=== PATIENT | female | born 1960 | race Caucasian/White ===

== ENCOUNTER 2017-11-20 12:43 | Emergency (ER) | payer BC ==
[2017-11-20 16:22] LABS: ABS Basophils 0.1 10^3/ul (0-0.2); ABS Eosinophils 0.1 10^3/ul (0-0.6); ABS Lymphocytes 2.5 10^3/ul (1.0-4.8); ABS Monocytes 0.6 10^3/ul (0-0.8); ABS Neutrophils 4.6 10^3/ul (1.5-7.7); ABS Nucleated RBC 0 10^3/ul; Eosinophil % 1.4 % (0-6); Hematocrit 43 % (35-47); Hemoglobin 14.3 g/dl (12.0-16.0); Lymphocyte % 31.6 % (25-47); Mean Corpuscular HGB Conc 34 g/dl (31-36); Mean Corpuscular Hemoglobin 30 pg (27-31); Mean Corpuscular Volume 90 fL (80-97); Mean Platelet Volume 7.7 um3 (7.4-10.4); Nucleated Red Blood Cells % 0.1; Platelet Count 260 10^3/ul (150-450); Red Blood Count 4.78 10^6/ul (4.00-5.40); Red Cell Distribution Width 14 % (10.5-15); White Blood Count 7.8 10^3/ul (3.5-10.8)
[2017-11-20 16:53] LABS: EGFR Non-African American 92.3 (>60)
--- NOTE | 2017-11-20 16:58 | RAD ---
INDICATION: Abdominal pain, no bowel movement. 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 TECHNIQUE: Frontal supine films of the abdomen were obtained. FINDINGS: The small bowel and colon appear nondistended. There is a moderate to large amount retained stool present throughout the colon. There is a calcific density which projects over the pelvis on the right side which is unchanged from the prior exam and therefore most consistent with a phlebolith. IMPRESSION: MODERATE TO LARGE AMOUNT RETAINED STOOL.
[2017-11-20] MEDS ORDERED: Magnesium CITRATE* 300 ML BTL PO ONE (17:04)
[2017-11-20] MEDS ORDERED: Polyethylene Glycol 3350* 17 GM PACKET PO PRN (17:04)
[2017-11-20] MEDS ORDERED: Sodium Phosphate ADULT ENEMA* 118 ml bottle PR ONE (17:04)
--- NOTE | 2017-11-20 17:12 | ED ---
Abdominal Pain/Female - HPI Summary HPI Summary: This is jose Kent documenting for Felipe Rene MD. This patient is a 57 y/o female presenting with an abdominal pain. She describes it as a constant, aching pain she has had for a few years that waxes and wanes and radiates to her back. The pain increased today when she got to work. She felt as if her back was going to break and she felt air coming up. She now describes the pain as a 6/10 that is aggravated by nothing and alleviated by nothing. She denies fever, chills, nausea, and vomiting. She went 16 days without BM until she saw an associate of Dr. Rojas who gave her Linzess. She then had BM yesterday after taking Linzess, but it was all water. She now describes it as still trying to come out. She has had 2 C-sections in the past and a colonoscopy 2 years ago that was normal. Her LNMP was 10 years ago. - History of Current Complaint Chief Complaint: EDAbdPain Stated Complaint: ABD PAIN Time Seen by Provider: 11/20/17 16:28 Hx Obtained From: Patient Hx Last Menstrual Period: 10 years ago Onset/Duration: Sudden Onset, Still Present Timing: Constant - with waxing and waning Severity Initially: Moderate Severity Currently: Moderate Pain Intensity: 6 Pain Scale Used: 0-10 Numeric Radiates: Yes Radiates to: Back Character: Other: - Ache Aggravating Factor(s): Nothing Alleviating Factor(s): Nothing Associated Signs and Symptoms: Positive: Back Pain - Had watery stool yesterday after 16 days of no BM. She denies fever, chills, nausea, and vomiting. Allergies/Adverse Reactions: Allergies Allergy/AdvReac Type Severity Reaction Status Date / Time No Known Allergies Allergy Verified 11/20/17 13:04 Home Medications: Home Medications Levothyroxine TAB* [Synthroid 88 MCG TAB*] 88 mcg PO DAILY 11/20/17 [History Confirmed 11/20/17] Sertraline* [Zoloft*] 100 mg PO DAILY 11/20/17 [History Confirmed 11/20/17] clonazePAM TAB(*) [Klonopin TAB(*)] 1 - 2 mg PO DAILY PRN 11/20/17 [History Confirmed 11/20/17] PMH/Surg Hx/FS Hx/Imm Hx Endocrine/Hematology History: Denies: Hx Diabetes Cardiovascular History: Denies: Hx Congestive Heart Failure, Hx Hypertension, Hx Pacemaker/ICD GI History: Denies: Other GI Disorders History: Reports: Other Problems/Disorders - ENLARGED UTERUS, MULT FIBROIDS Denies: Hx Renal Disease Sensory History: Denies: Hx Hearing Aid Psychiatric History: Denies: Hx Eating Disorder, Hx Panic Disorder, Hx of Violent Episodes Against Others - Cancer History Hx Chemotherapy: No Hx Radiation Therapy: No - Surgical History Surgery Procedure, Year, and Place: 2 C SECTIONS . LAPROSCOPIC CYST REMOVAL OVARIES 11/27/15 - Immunization History Date of Tetanus Vaccine: Unk Date of Influenza Vaccine: Unk Infectious Disease History: No Infectious Disease History: Denies: Traveled Outside the [place] in Last 30 Days - Family History Known Family History: Positive: Cardiac Disease - mother (45 y/o) and father (68 ) both of [place], Diabetes, Other - MEN1 and rheumatoid arthritis - Social History Alcohol Use: Occasionally Substance Use Type: Reports: None Hx Tobacco Use: No Smoking Status (MU): Never Smoked Tobacco Review of Systems Negative: Fever, Chills Positive: Abdominal Pain, Other - Hasn't had BM in 16 days, but took Linzess, after which she had watery stool yesterday. Negative: Vomiting, Nausea Positive: Other - back pain All Other Systems Reviewed And Are Negative: Yes Physical Exam - Summary Physical Exam Summary: VITAL SIGNS: Reviewed. GENERAL: Patient is a well-developed and nourished FEMALE who is lying comfortable in the stretcher. Patient is not in any acute respiratory distress. HEAD AND FACE: No signs of trauma. No ecchymosis, hematomas or skull depressions. No sinus tenderness. EYES: PERRLA, EOMI x 2, No injected conjunctiva, no nystagmus. EARS: Hearing grossly intact. Ear canals and tympanic membranes are within normal limits. MOUTH: Oropharynx within normal limits. NECK: Supple, trachea is midline, no adenopathy, no JVD, no carotid bruit, no c- spine tenderness, neck with full ROM. CHEST: Symmetric, no tenderness at palpation LUNGS: Clear to auscultation bilaterally. No wheezing or crackles. CVS: Regular rate and rhythm, S1 and S2 present, no murmurs or gallops appreciated. ABDOMEN: Soft, non-tender. No signs of distention. No rebound no guarding, and no masses palpated. Bowel sounds are normal. EXTREMITIES: FROM in all major joints, no edema, no cyanosis or clubbing. NEURO: Alert and oriented x 3. No acute neurological deficits. Speech is normal and follows commands. SKIN: Dry and warm Triage Information Reviewed: Yes Vital Signs On Initial Exam: Initial Vitals Temp Pulse Resp BP Pulse Ox 99.1 F 88 18 167/98 99 11/20/17 13:00 11/20/17 13:00 11/20/17 13:00 11/20/17 13:00 11/20/17 13:00 Vital Signs Reviewed: Yes Diagnostics - Vital Signs Vital Signs Temp Pulse Resp BP Pulse Ox 11/20/17 16:41 97.8 F 16 11/20/17 16:38 97 99 11/20/17 16:37 97 168/101 98 11/20/17 16:04 98.2 F 80 18 155/95 100 11/20/17 14:07 98.3 F 87 16 149/96 99 11/20/17 13:00 99.1 F 88 18 167/98 99 - Laboratory Lab Results: Lab Results 11/20/17 11/20/17 Range/Units 15:59 15:59 WBC 7.8 (3.5-10.8) 10^3/ul RBC 4.78 (4.00-5.40) 10^6/ul Hgb 14.3 (12.0-16.0) g/dl Hct 43 (35-47) % MCV 90 (80-97) fL MCH 30 (27-31) pg MCHC 34 (31-36) g/dl RDW 14 (10.5-15) % Plt Count 260 (150-450) 10^3/ul MPV 7.7 (7.4-10.4) um3 Neut % (Auto) 59.0 (38-83) % Lymph % (Auto) 31.6 (25-47) % [place] % (Auto) 7.2 H (0-7) % Eos % (Auto) 1.4 (0-6) % Baso % (Auto) 0.8 (0-2) % Absolute Neuts (auto) 4.6 (1.5-7.7) 10^3/ul Absolute Lymphs (auto) 2.5 (1.0-4.8) 10^3/ul Absolute Monos (auto) 0.6 (0-0.8) 10^3/ul Absolute Eos (auto) 0.1 (0-0.6) 10^3/ul Absolute Basos (auto) 0.1 (0-0.2) 10^3/ul Absolute Nucleated RBC 0 10^3/ul Nucleated RBC % 0.1 Sodium 140 (135-145) mmol/L Potassium 3.7 (3.5-5.0) mmol/L Chloride 105 (101-111) mmol/L Carbon Dioxide 26 (22-32) mmol/L Anion Gap 9 (2-11) mmol/L BUN 6 (6-24) mg/dL Creatinine 0.66 (0.51-0.95) mg/dL Est GFR ( Amer) 111.7 (>60) Est GFR (Non-Af Amer) 92.3 (>60) BUN/Creatinine Ratio 9.1 (8-20) Glucose 83 (70-100) mg/dL Calcium 9.6 (8.6-10.3) mg/dL Total Bilirubin 0.40 (0.2-1.0) mg/dL AST 17 (13-39) U/L ALT 24 (7-52) U/L Alkaline Phosphatase 80 (34-104) U/L C-Reactive Protein 2.92 (<8.01) mg/L Total Protein 7.6 (6.4-8.9) g/dL Albumin 4.3 (3.2-5.2) g/dL Globulin 3.3 (2-4) g/dL Albumin/Globulin Ratio 1.3 (1-3) Lipase 14 (11.0-82.0) U/L Result Diagrams: 11/20/17 15:59 11/20/17 15:59 Lab Statement: Any lab studies that have been ordered have been reviewed, and results considered in the medical decision making process. - Radiology Abdomen X-Ray Radiology Interpretation Completed By: Radiologist - MODERATE TO LARGE AMOUNT RETAINED STOOL. ED Physician has reviewed this radiology report. Abdominal Pain Fem Course/Dx - Course Course Of Treatment: Patient is a 57-year-old female who presents to the emergency department with a chief complaining of diffuse abdominal pain. The patient reports that shes been having the pain for approximately 1-2 years. Patient has seen GI doctor and also has had a colonoscopy with no significant abnormal findings. She reports that she went to see the GI doctor yesterday for which the given some medications and she had some watery bowel movement. She also reports that she has not had a bowel movement for approximately 16 days. His results without any significant abnormality. X-ray of the abdomen shows copious amount of retain stool. In the ED course the patient was given MiraLAX, lactulose, magnesium citrate and Fleet enema. At this point the patient will be discharged home with follow-up with PCP. Patient is hemodynamically stable alert oriented 3. At this time I dont believe that the patient will benefit of another abdominopelvic CT. I discussed all the findings and test results with the patient and he to follow with PCP and GI. The patient understands and agrees. - Diagnoses Differential Diagnosis: Positive: Constipation Provider Diagnoses: Constipation Discharge - Sign-Out/Discharge Documenting (check all that apply): Patient Departure - Discharge Plan Condition: Stable Disposition: HOME Prescriptions: Magnesium CITRATE* [Citrate of Magnesia*] 150 ml PO ONCE #1 btl Polyethylene Glycol 3350* [Miralax*] 17 gm PO DAILY #12 packet Sodium Phosphate ADULT ENEMA* [Fleet Enema*] 1 enema CO BEDTIME PRN #2 btl PRN Reason: Constipation Patient Education Materials: Constipation (ED) Referrals: Migdalia Otero NP [Primary Care Provider] - 3 Days Additional Instructions: Return to the ED for any new or worsening symptoms.
[2017-11-20 17:37] VITALS: BP 149/95
== END 2017-11-20 17:39 | disposition home or self-care (01) ==
LOC: ED 12:43
DX: K59.00 Constipation, unspecified (principal)
CPT/HCPCS: 36415; 74018; 80053; 83690; 85025; 86140; 99283; A9270-GY

== ENCOUNTER 2017-11-21 12:03 | Emergency (ER) | payer BC ==
[2017-11-21] MEDS ORDERED: Polyethylene Glycol 3350* 17 GM PACKET PO ONE (18:25)
--- NOTE | 2017-11-21 18:30 | ED ---
GI/ HPI - HPI Summary HPI Summary: This is jose Donnelly documenting for attending Taqueria Wilkerson MD. This patient is a 57 year old F presenting to ED with a chief complaint of lack of BM since 2 weeks ago. She took Linzess and all that came out was water. This issue has been occurring for the past couple of years, but every time she empties the stool, it fills back up again. Prior treatment includes Miralax, Cheng, and Linzess. She reports she doesnt drink much water, hasnt tried prune juice, but eats lots of vegetables. The patient rates the pain 6/10 in severity. Symptoms aggravated by nothing. Symptoms alleviated by nothing. Patient reports abdominal pain, nausea, and dry heaves secondary to the pressure in her abdomen. She also reports her back feels like its going to break. - History of Current Complaint Chief Complaint: EDGeneral Time Seen by Provider: 11/21/17 16:24 Stated Complaint: CONSTIPATION Hx Obtained From: Patient Hx Last Menstrual Period: 10 years ago Onset/Duration: Started Weeks Ago - 2 weeks ago it worsened but she has been having issues for the past 2 years, Still Present Timing: Constant, Lasting Weeks - 2 weeks ago it worsened but she has been having issues for the past 2 years Severity: Moderate - 6/10 Current Severity: Moderate - 6/10 Pain Intensity: 6 Location of Pain: Other - back pain, abdominal pain Pain Characteristics: Pressure - in the abdomen, Other: - feels like her back is going to break Associated Signs and Symptoms: Positive: Nausea - and dry heaves - Allergy/Home Medications Allergies/Adverse Reactions: Allergies Allergy/AdvReac Type Severity Reaction Status Date / Time No Known Allergies Allergy Verified 11/20/17 13:04 PMH/Surg Hx/FS Hx/Imm Hx Endocrine/Hematology History: Denies: Hx Diabetes Cardiovascular History: Denies: Hx Congestive Heart Failure, Hx Hypertension, Hx Pacemaker/ICD GI History: Denies: Other GI Disorders History: Reports: Other Problems/Disorders - ENLARGED UTERUS, MULT FIBROIDS Denies: Hx Renal Disease Sensory History: Denies: Hx Hearing Aid Psychiatric History: Denies: Hx Eating Disorder, Hx Panic Disorder, Hx of Violent Episodes Against Others - Cancer History Hx Chemotherapy: No Hx Radiation Therapy: No - Surgical History Surgery Procedure, Year, and Place: 2 C SECTIONS . LAPROSCOPIC CYST REMOVAL OVARIES 11/27/15 - Immunization History Date of Tetanus Vaccine: Unk Date of Influenza Vaccine: Unk Infectious Disease History: No Infectious Disease History: Denies: Traveled Outside the [place] in Last 30 Days - Family History Known Family History: Positive: Cardiac Disease - mother (45 y/o) and father (68 ) both of [place], Diabetes, Other - MEN1 and rheumatoid arthritis - Social History Alcohol Use: Occasionally Substance Use Type: Reports: None Hx Tobacco Use: No Smoking Status (MU): Never Smoked Tobacco Review of Systems Negative: Fever, Chills Negative: Erythema Negative: Sore Throat Negative: Chest Pain Negative: Shortness Of Breath, Cough Negative: Abdominal Pain, Vomiting, Nausea Negative: dysuria, hematuria Negative: Myalgia, Edema Negative: Rash Neurological: Other - negative for dizziness All Other Systems Reviewed And Are Negative: Yes Physical Exam - Summary Physical Exam Summary: Constitutional: Well-developed, Well-nourished, Alert. (-) Distressed Skin: Warm, Dry HENT: Normocephalic; Atraumatic Eyes: Conjunctiva normal Neck: Musculoskeletal ROM normal neck. (-) JVD, (-) Stridor, (-) Tracheal deviation Cardio: Rhythm regular, rate normal, Heart sounds normal; Intact distal pulses; The pedal pulses are 2+ and symmetric. Radial pulses are 2+ and symmetric. (-) Murmur Pulmonary/Chest wall: Effort normal. (-) Respiratory distress, (-) Wheezes, (-) Rales Abd: Soft, (-), epigastric tenderness, (-) Distension, (-) Guarding, (-) Rebound Musculoskeletal: (-) Edema Lymph: (-) Cervical adenopathy Neuro: Alert, Oriented x3 Psych: Mood and affect Normal Triage Information Reviewed: Yes Vital Signs On Initial Exam: Initial Vitals Temp Pulse Resp BP Pulse Ox 97.5 F 79 16 164/101 98 11/21/17 12:08 11/21/17 12:08 11/21/17 12:08 11/21/17 12:08 11/21/17 12:08 Vital Signs Reviewed: Yes Diagnostics - Vital Signs Vital Signs Temp Pulse Resp BP Pulse Ox 11/21/17 15:21 98.4 F 77 16 131/79 98 11/21/17 12:08 97.5 F 79 16 164/101 98 - Laboratory Lab Statement: Any lab studies that have been ordered have been reviewed, and results considered in the medical decision making process. Re-Evaluation - Re-Evaluation First Eval Re-Evaluation Time: 18:35 Comment: Discussed with the patient the recommendations from Dr. Driscoll and plan for discharge. The patient understands and agrees. GIGU Course/Dx - Course Assessment/Plan: Chronic constipation in setting of medication incompliance. Benzodiazepine use. Poor oral intake of water. - Diagnoses Differential Diagnoses - Female: Constipation Provider Diagnoses: Constipation - Physician Notifications Discussed Care Of Patient With: oTny Driscoll Time Discussed With Above Provider: 18:18 Instructed by Provider To: Other - Consulted Dr. Driscoll who recommends the patient increases her water intake, decrease her klonopin, and takes 3 doses of Miralax , and takes Linzess everyday. Discharge - Sign-Out/Discharge Documenting (check all that apply): Patient Departure - Discharge Plan Condition: Stable Disposition: HOME Prescriptions: Polyethylene Glycol 3350* [Miralax*] 51 gm PO DAILY #60 packet Patient Education Materials: Constipation (ED) Referrals: Tony Driscoll MD [Medical Doctor] - (Please follow up with Dr. Driscoll tomorrow morning.) Additional Instructions: Increase your water intake, decrease klonopin, take 3 doses of Miralax, and take Linzess everyday. Please follow up with Dr. Driscoll tomorrow morning. RETURN TO THE EMERGENCY DEPARTMENT FOR CHANGING OR WORSENING SYMPTOMS.
[2017-11-21 19:14] VITALS: BP 128/79
== END 2017-11-21 18:50 | disposition home or self-care (01) ==
LOC: ED 12:03
DX: K59.00 Constipation, unspecified (principal); R11.0 Nausea; Z82.49 Family history of ischemic heart disease and other diseases of the circulatory system; Z83.3 Family history of diabetes mellitus; Z82.61 Family history of arthritis
CPT/HCPCS: 99283; A9270-GY

== ENCOUNTER 2018-01-17 16:34 | Emergency (ER) | payer BC ==
[2018-01-17 17:06] VITALS: BP 138/97
--- NOTE | 2018-01-17 17:12 | UC ---
Abdominal Pain Female HPI - HPI Summary HPI Summary: 57 yo female presents with a history of constipation and GI issues. She tells me that over the last 3 years she has been having issues with constipation for days at a time and then will needs to take a laxative that will cause her to have a large painful BM. She has seen GI for this in the past and has had a colonoscopy, EGD, and CT scan which were all normal - per pt. She has been taking amitiza for her symptoms from GI with no change in her symptoms. She is here today because over the last 9 days she has not had a bowel movement. She has taken colace, miralax, mag citrate, and done a fleet enema with no results. She complains that her upper abdomen is painful, cramping, and distended. She feels nauseous, but has not been vomiting. Denies fever, chills, SOB, chest pain , vomiting, dysuria. She has had 2 c sections and ovarian cyst removals. - History of Current Complaint Chief Complaint: UCGI Stated Complaint: CONSTIPATION Time Seen by Provider: 01/17/18 17:12 Hx Obtained From: Patient Hx Last Menstrual Period: 10 years ago Onset/Duration: Gradual Onset Severity Initially: Mild Severity Currently: Moderate Pain Intensity: 6 Pain Scale Used: 0-10 Numeric Allergies/Adverse Reactions: Allergies Allergy/AdvReac Type Severity Reaction Status Date / Time No Known Allergies Allergy Verified 01/17/18 17:07 Home Medications: Home Medications Lubiprostone [Amitiza] 24 mcg PO Q12HR PRN 01/17/18 [History Confirmed 01/17/18] PMH/Surg Hx/FS Hx/Imm Hx - Additional Past Medical History Additional PMH: IBS Chronic constipation - Surgical History Surgical History: Yes Surgery Procedure, Year, and Place: 2 C SECTIONS . LAPROSCOPIC CYST REMOVAL OVARIES 11/27/15 - Family History Known Family History: Positive: Cardiac Disease - mother (45 y/o) and father (68 ) both of [place], Diabetes, Other - MEN1 and rheumatoid arthritis - Social History Occupation: Employed Full-time Lives: With Family Alcohol Use: Occasionally Substance Use Type: None Smoking Status (MU): Never Smoked Tobacco Review of Systems Constitutional: Negative Skin: Negative Respiratory: Negative Cardiovascular: Negative Gastrointestinal: Abdominal Pain, Nausea Genitourinary: Negative Neurovascular: Negative Neurological: Negative Psychological: Negative All Other Systems Reviewed And Are Negative: Yes Physical Exam - Summary Physical Exam Summary: GENERAL: NAD. WDWN. No pain distress. SKIN: No rashes, sores, lesions, or open wounds. NECK: Supple. Nontender. No lymphadenopathy. CHEST: CTAB. No r/r/w. No accessory muscle use. Breathing comfortably and in no distress. CV: RRR. Without m/r/g. Pulses intact. Cap refill <2seconds ABDOMEN: Soft. Moderate TTP RUQ, epigastric region, and LUQ. Mild distention. No guarding. No CVA tenderness. Bowel sounds present x4 NEURO: Alert. PSYCH: Age appropriate behavior. Triage Information Reviewed: Yes Vital Signs: Initial Vital Signs Temp 98.6 F 01/17/18 17:01 Pulse 85 01/17/18 17:01 Resp 16 01/17/18 17:01 BP 138/97 01/17/18 17:01 Pulse Ox 100 01/17/18 17:01 Vital Signs Reviewed: Yes Abd Pain Female Course/Dx - Course Course Of Treatment: Given that she has failed out patient therapy with multiple medications - there is a suspicion for bowel obstruction. I discussed this at length with the pt and recommended that she be further evaluated in the ER. - Differential Dx/Diagnosis Provider Diagnoses: Constipation. Abdominal pain Discharge - Sign-Out/Discharge Documenting (check all that apply): Patient Departure All imaging exams completed and their final reports reviewed: No Studies - Discharge Plan Condition: Stable Disposition: HOME-RECOMMEND TO ED Referrals: Migdalia Otero NP [Primary Care Provider] - Additional Instructions: Please go to the ER for further evaluation of your abdominal pain and lack of bowel movement in 9 days with failure of outpatient treatment - there is concern you may have a bowel obstruction - Billing Disposition and Condition Condition: STABLE Disposition: Home-Recommend to ED
== END 2018-01-17 17:41 | disposition home health service (06) ==
LOC: UCEAST 16:34
DX: K59.00 Constipation, unspecified (principal); R10.13 Epigastric pain; R10.11 Right upper quadrant pain; R10.12 Left upper quadrant pain
CPT/HCPCS: 99212; G0463

== ENCOUNTER 2018-01-21 11:38 | Emergency (ER) | payer BC ==
--- NOTE | 2018-01-21 14:35 | ED ---
Abdominal Pain/Female - HPI Summary HPI Summary: This patient is a 57 year old F presenting to [facility] with a chief complaint of an inability to go to the bathroom that began VP ANCILLARY. The patient rates the pain 8/ 10 in severity. Symptoms aggravated by nothing. Symptoms alleviated by nothing. Patient reports lower right back pain. Patient denies vomiting, nausea, and CP. Pt states she cannot remember the last time she had a BM. Pt states she has been seen here for similar symptoms. Pt states she had benign colonoscopy one year ago. - History of Current Complaint Chief Complaint: EDAbdPain Stated Complaint: CONSTIPATION Time Seen by Provider: 01/21/18 14:23 Hx Obtained From: Patient Hx Last Menstrual Period: 10 years ago ?: No Onset/Duration: Sudden Onset, Lasting Weeks, Still Present Timing: Constant Severity Initially: Severe Severity Currently: Severe Pain Intensity: 8 Pain Scale Used: 0-10 Numeric Location: Diffuse Radiates: No Aggravating Factor(s): Nothing Alleviating Factor(s): Nothing Associated Signs and Symptoms: Positive: Back Pain, Other: - Negative CP. Negative: Nausea, Vomiting Allergies/Adverse Reactions: Allergies Allergy/AdvReac Type Severity Reaction Status Date / Time No Known Allergies Allergy Verified 01/21/18 11:42 PMH/Surg Hx/FS Hx/Imm Hx Previously Healthy: No Endocrine/Hematology History: Reports: Hx Thyroid Disease - hypo Denies: Hx Diabetes Cardiovascular History: Denies: Hx Congestive Heart Failure, Hx Hypertension, Hx Pacemaker/ICD GI History: Denies: Other GI Disorders History: Reports: Other Problems/Disorders - ENLARGED UTERUS, MULT FIBROIDS Denies: Hx Renal Disease Sensory History: Denies: Hx Hearing Aid Psychiatric History: Denies: Hx Eating Disorder, Hx Panic Disorder, Hx of Violent Episodes Against Others - Cancer History Hx Chemotherapy: No Hx Radiation Therapy: No - Surgical History Surgery Procedure, Year, and Place: 2 C SECTIONS . LAPROSCOPIC CYST REMOVAL OVARIES 11/27/15 - Immunization History Date of Tetanus Vaccine: Unk Date of Influenza Vaccine: Unk Infectious Disease History: No Infectious Disease History: Denies: Traveled Outside the [place] in Last 30 Days - Family History Known Family History: Positive: Cardiac Disease - mother (45 y/o) and father (68 ) both of [place], Diabetes, Other - MEN1 and rheumatoid arthritis - Social History Occupation: Employed Full-time Lives: With Family Alcohol Use: Occasionally Hx Substance Use: No Substance Use Type: Reports: None Hx Tobacco Use: No Smoking Status (MU): Never Smoked Tobacco Review of Systems Negative: Chest Pain Positive: Other - Positive inability to go to the bathroom. Negative: Vomiting , Nausea Positive: Other - Positive back pain All Other Systems Reviewed And Are Negative: Yes Physical Exam - Summary Physical Exam Summary: GENERAL: Patient is a well-developed and nourished F who is lying comfortable in the stretcher. Patient is not in any acute respiratory distress. HEAD AND FACE: Normocephalic EYES: PERRLA, EOMI x 2. EARS: Hearing grossly intact. MOUTH: Oropharynx within normal limits. NECK: Supple, trachea is midline, no adenopathy, no JVD, no carotid bruit. CHEST: Symmetric, no tenderness at palpation LUNGS: Clear to auscultation bilaterally. No wheezing or crackles. CVS: Regular rate and rhythm, S1 and S2 present, no murmurs or gallops appreciated. ABDOMEN: Soft, non-tender. Hypoactive bowel sounds. No abdominal abnormal pulsations. Distended EXTREMITIES: Full ROM in all major joints, no edema, no cyanosis or clubbing. NEURO: Alert and oriented x 3. No acute neurological deficits. Speech is normal and follows commands. SKIN: Dry and warm Triage Information Reviewed: Yes Vital Signs On Initial Exam: Initial Vitals Temp Pulse Resp BP Pulse Ox 98 F 91 14 160/97 97 01/21/18 11:42 01/21/18 11:42 01/21/18 11:42 01/21/18 11:42 01/21/18 11:42 Vital Signs Reviewed: Yes Diagnostics - Vital Signs Vital Signs Temp Pulse Resp BP Pulse Ox 01/21/18 13:54 93 158/96 01/21/18 13:52 97.9 F 99 16 01/21/18 11:42 98 F 91 14 160/97 97 - Laboratory Result Diagrams: 01/21/18 15:27 01/21/18 15:27 Lab Statement: Any lab studies that have been ordered have been reviewed, and results considered in the medical decision making process. - CT CT Abdomen and Pelvis CT Interpretation Completed By: Radiologist - CT abdomen and pelvis reveals, per radiologist, 1. No acute inflammatory change of the gastrointestinal tract or pathologic dilatation to indicate obstruction. 2. At the expected location of the right ovary there is a 1.5 cm fluid density structure which can be regarded as a normal ovarian follicle in a premenopausal woman. Please correlate to menstrual status. Similar to prior CT examination the uterus is mildly enlarged consistent with the reported history of uterine fibroids. Superior characterization of the pelvic adnexa can be made with transvaginal pelvic ultrasound if clinically warranted. Re-Evaluation - Re-Evaluation First Eval Re-Evaluation Time: 18:13 Change: Unchanged Comment: Pt states she stopped having her period a long time ago. Abdominal Pain Fem Course/Dx - Course Course Of Treatment: This patient is a 57 year old F presenting to [facility] with a chief complaint of an inability to go to the bathroom that began VP ANCILLARY. Physical Exam Findings: Distended. Hypoactive bowel sounds. CT abdomen and pelvis reveals , per radiologist, 1. No acute inflammatory change of the gastrointestinal tract or pathologic dilatation to indicate obstruction. 2. At the expected location of the right ovary there is a 1.5 cm fluid density structure which can be regarded as a normal ovarian follicle in a premenopausal woman. Please correlate to menstrual status. Similar to prior CT examination the uterus is mildly enlarged consistent with the reported history of uterine fibroids. Superior characterization of the pelvic adnexa can be made with transvaginal pelvic ultrasound if clinically warranted. Blood work UA obtained. In the ED course the patient was given Contrast, fluids, and Reglan. Pt will be signed out to Dr. Coker upon shift change pending US and disposition. - Diagnoses Provider Diagnoses: Abdominal pain Discharge - Sign-Out/Discharge Documenting (check all that apply): Sign-Out Patient Signing out patient TO: Son Coker - Upon shift change pending US and disposition - Discharge Plan Condition: Stable Disposition: HOME Patient Education Materials: Constipation (ED), High Fiber Diet (ED) Referrals: Migdalia Otero NP [Primary Care Provider] - - Billing Disposition and Condition Condition: STABLE Disposition: Home - Attestation Statements Document Initiated by Scribe: Yes Documenting Scribe: Mary Pang Provider For Whom Juanibe is Documenting (Include Credential): Nathaly Kapoor MD Scribe Attestation: Mary Coburn, scribed for Nathaly Kapoor MD on 01/22/18 at 2346. Scribe Documentation Reviewed: Yes Provider Attestation: The documentation as recorded by the scribeMary accurately reflects the service I personally performed and the decisions made by me, Nathaly Kapoor MD
[2018-01-21] MEDS ORDERED: Metoclopramide IV* 5 MG/ML 2 ML VIAL IV ONE (14:36)
[2018-01-21] MEDS ORDERED: NS 0.9% 1000 ML* 1,000 ML IV ONE (14:36)
[2018-01-21 15:37] LABS: ABS Basophils 0.1 10^3/ul (0-0.2); ABS Eosinophils 0.1 10^3/ul (0-0.6); ABS Lymphocytes 2.2 10^3/ul (1.0-4.8); ABS Monocytes 0.6 10^3/ul (0-0.8); ABS Nucleated RBC 0 10^3/ul; Eosinophil % 1.2 % (0-6); Hematocrit 45 % (35-47); Hemoglobin 14.8 g/dl (12.0-16.0); Lymphocyte % 22.2 % (25-47); Mean Corpuscular HGB Conc 33 g/dl (31-36); Mean Corpuscular Hemoglobin 29 pg (27-31); Mean Corpuscular Volume 88 fL (80-97); Mean Platelet Volume 7.9 um3 (7.4-10.4); Nucleated Red Blood Cells % 0.1; Platelet Count 297 10^3/ul (150-450); Red Cell Distribution Width 14 % (10.5-15)
[2018-01-21 15:54] LABS: EGFR Non-African American 80.9 (>60)
[2018-01-21 15:55] LABS: INR 0.94 (0.77-1.02)
[2018-01-21] MEDS ORDERED: Iohexol 300* (CONTRAST) 10 ML SDV IV ONE (15:59)
--- NOTE | 2018-01-21 18:04 | RAD ---
CLINICAL HISTORY: Abdominal pain and constipation. COMPARISON: Most recent comparison CT examination dated January 19, 2015 TECHNIQUE: Contrast enhanced CT examination of the abdomen and pelvis from the lung bases through the initial tuberosities. The patient received 109 mL Omnipaque 300 intravenously prior to imaging.The patient received oral contrast as well prior to imaging. FINDINGS: VISUALIZED LUNG BASES: The visualized lung bases are grossly clear. There is no pleural effusion. ABDOMEN AND PELVIS: The liver, spleen, pancreas and adrenal glands are grossly normal in appearance. The gallbladder is normal. The kidneys are normal in appearance without focal mass, calcification or signs of hydronephrosis. There are contrast has progressed as far as the distal small bowel. The small and large bowel are not distended. The patient's normal appendix is identified in the right lower quadrant measuring just under 5 mm in diameter with gas in the lumen. There is no gross retroperitoneal or mesenteric lymphadenopathy. In the right adnexa there is a fluid density 1.5 cm structure most consistent with an ovarian follicle/cyst. The uterus measures 4.3 x 10 cm in the sagittal plane by 4.5 cm in the transverse axial plane. This appears similar to the previous CT examination. The myometrium is mildly heterogeneous also similar to the previous CT examination. The abdominal aorta and iliac arteries are normal in course and diameter. Degenerative changes include multilevel loss of intervertebral disc height involving the lower thoracic and lumbar spine.There are no sinister bone lesions. IMPRESSION: 1. No acute inflammatory change of the gastrointestinal tract or pathologic dilatation to indicate obstruction. 2. At the expected location of the right ovary there is a 1.5 cm fluid density structure which can be regarded as a normal ovarian follicle in a premenopausal woman. Please correlate to menstrual status. Similar to prior CT examination the uterus is mildly enlarged consistent with the reported history of uterine fibroids. Superior characterization of the pelvic adnexa can be made with transvaginal pelvic ultrasound if clinically warranted.
[2018-01-21 19:43] LABS: Urine Appearance Clear; Urine Blood Negative (Negative); Urine Color Straw; Urine Ketones Negative (Negative); Urine Protein Negative (Negative); Urine Red Blood Cell Trace(0-2/hpf) (Absent); Urine Specific Gravity 1.003 (1.010-1.030); Urine Urobilinogen Negative (Negative); Urine White Blood Cell Trace(0-5/hpf) (Absent)
--- NOTE | 2018-01-21 21:06 | RAD ---
EXAM: US Pelvis, Transvaginal CLINICAL HISTORY: 57 years old, female; Abnormal findings; Abnormal imaging test and mass/lesion; Ovary; Prior surgery; Surgery date: 6+ months; Additional info: Eval right sided lesion seen on CT scan TECHNIQUE: Real-time transvaginal pelvic ultrasound (complete) with image documentation. Transvaginal imaging was used for better evaluation of the endometrium and adnexa. COMPARISON: PELVIC US PELVIC 04/08/2015 10:48 AM FINDINGS: Uterus/cervix: The uterus measures 6.4 x 4.1 x 4.1 cm. The myometrium has heterogeneous echotexture, but no measurable mass identified. Endometrial stripe measures 5 mm. Right ovary: The right ovary measures 3.4 x 2.3 x 1.3 cm and contains a 1.1 x 1.3 x 1.5 cm simple cyst.. Normal blood flow. Left ovary: The left ovary was not visualized. Free fluid: No free fluid. Bladder: Empty bladder which cannot be evaluated with this probe. Limitations: The study was limited by bowel gas and anteflexed configuration of the uterus. IMPRESSION: 1. 1.5 cm right ovarian simple cyst 2. Enlarged heterogeneous uterus consistent with history of uterine fibroids. No discrete fibroids visible on this study. 3. Left ovary not visualized.
--- NOTE | 2018-01-21 21:28 | PN ---
Progress Note - Progress Note Date of Service: 01/21/18 Note: SIGN-OUT RECEIVED FROM DR. ENGEL AT SHIFT CHANGE PENDING U/S REPORT AND DISPO. 2150: ED provider at bedside. Pt is a 57 y/o F presenting to ED with stool retention. Discussing U/S results with pt. DIAGNOSTICS: Transvaginal U/S as read by radiologist: 1. 1.5 cm R ovarian simple cyst. 2. Enlarged heterogeneous uterus consistent with hx of uterine fibroids. No discrete fibroids visible on this study. 3. Left ovary not visualized. ED provider has reviewed this report. COT: DX: DISPO: This is scribeJia, documenting for attending Dr. Son Coker MD. I, Dr. Coker, personally performed the services described in this documentation as scribed in my presence and it is both accurate and complete. <Jia English - Last Filed: 01/21/18 21:52> - Progress Note Note: Disposition: Home Diagnosis: 1. Ovarian cyst 2. Constipation Course of treatment: Patient describes history of chronic constipation consistent with irritable bowel syndrome. This is worsened somewhat recently. Physical exam is benign. CAT scan does not show any acute intracranial process , follow-up ultrasound confirmed ovarian abnormality is a cyst. <Son Coker - Last Filed: 01/22/18 06:35>
[2018-01-21 22:19] VITALS: BP 148/104
== END 2018-01-21 22:20 | disposition home or self-care (01) ==
LOC: ED 11:38
DX: R10.9 Unspecified abdominal pain (principal); N83.201 Unspecified ovarian cyst, right side; M54.9 Dorsalgia, unspecified; Z87.42 Personal history of other diseases of the female genital tract
CPT/HCPCS: 36415; 74177; 76830; 80053; 81003; 81015; 82140; 83605; 83690; 83735; 84443; 85025; 85610; 85730; 86140; 87040; 87086; 96361; 96374; 99283; J2765; Q9967

== ENCOUNTER 2018-10-24 11:25 | Emergency (ER) | payer BC ==
[2018-10-24] MEDS ORDERED: NS 0.9% 1000 ML** 1,000 ML IV ONE (12:09)
[2018-10-24] MEDS ORDERED: Ketorolac INJ* 30 MG/ML 1 ML VIAL IV PUSH ONE (12:09)
--- NOTE | 2018-10-24 12:11 | ED ---
GI/ HPI - HPI Summary HPI Summary: 58-year-old female presents with abdominal pain for the past couple months. She states it has not gotten worse. States something is wrong with her intestines. She has a history constipation. She takes linzess daily. She denies any nausea vomiting. No diarrhea. No blood in stool. Hasn't tried anything else. No fevers. No chest pain or shortness of breath. had normal colonscopy a couple days ago. - History of Current Complaint Chief Complaint: EDConstipation Time Seen by Provider: 10/24/18 11:42 Stated Complaint: STOMACH TROUBLE PER PT Hx Last Menstrual Period: 10 years ago Pain Intensity: 6 - Allergy/Home Medications Allergies/Adverse Reactions: Allergies Allergy/AdvReac Type Severity Reaction Status Date / Time No Known Allergies Allergy Verified 10/24/18 11:35 Home Medications: Home Medications Linaclotide [Linzess] 72 mcg PO DAILY 10/24/18 [History Confirmed 10/24/18] PMH/Surg Hx/FS Hx/Imm Hx Endocrine/Hematology History: Reports: Hx Thyroid Disease - hypo Denies: Hx Diabetes Cardiovascular History: Denies: Hx Congestive Heart Failure, Hx Hypertension, Hx Pacemaker/ICD GI History: Denies: Other GI Disorders History: Reports: Other Problems/Disorders - ENLARGED UTERUS, MULT FIBROIDS Denies: Hx Renal Disease Sensory History: Denies: Hx Hearing Aid Psychiatric History: Denies: Hx Eating Disorder, Hx Panic Disorder, Hx of Violent Episodes Against Others - Cancer History Hx Chemotherapy: No Hx Radiation Therapy: No - Surgical History Surgery Procedure, Year, and Place: 2 C SECTIONS . LAPROSCOPIC CYST REMOVAL OVARIES 11/27/15 - Immunization History Date of Tetanus Vaccine: Unk Date of Influenza Vaccine: Unk Immunizations Up to Date: Yes Infectious Disease History: No Infectious Disease History: Denies: Traveled Outside the [place] in Last 30 Days - Family History Known Family History: Positive: Cardiac Disease - mother (45 y/o) and father (68 ) both of [place], Diabetes, Other - MEN1 and rheumatoid arthritis - Social History Alcohol Use: Occasionally Hx Substance Use: No Substance Use Type: Reports: None Hx Tobacco Use: No Smoking Status (MU): Never Smoked Tobacco Review of Systems Negative: Fever Negative: Chest Pain Negative: Shortness Of Breath Positive: Abdominal Pain. Negative: Vomiting, Diarrhea, Nausea All Other Systems Reviewed And Are Negative: Yes Physical Exam Triage Information Reviewed: Yes Vital Signs On Initial Exam: Initial Vitals Temp Pulse Resp BP Pulse Ox 99.1 F 123 16 175/119 100 10/24/18 11:31 10/24/18 11:31 10/24/18 11:31 10/24/18 11:31 10/24/18 11:31 Vital Signs Reviewed: Yes Appearance: Positive: Well-Appearing Skin: Positive: Warm, Dry Head/Face: Positive: Normal Head/Face Inspection Eyes: Positive: Normal, Conjunctiva Clear ENT: Positive: Pharynx normal Respiratory/Lung Sounds: Positive: Clear to Auscultation, Breath Sounds Present Cardiovascular: Positive: Normal, RRR Abdomen Description: Positive: Soft, Other: - tenderness in epigastric region Bowel Sounds: Positive: Present Musculoskeletal: Positive: Normal Neurological: Positive: Normal Psychiatric: Positive: Normal Diagnostics - Vital Signs Vital Signs Temp Pulse Resp BP Pulse Ox 10/24/18 11:46 127 96 10/24/18 11:44 121 163/110 97 10/24/18 11:31 99.1 F 123 16 175/119 100 - Laboratory Result Diagrams: 10/24/18 11:59 10/24/18 11:59 Lab Statement: Any lab studies that have been ordered have been reviewed, and results considered in the medical decision making process. - CT abd CT Interpretation Completed By: Radiologist Summary of CT Findings: IMPRESSION: 1. FATTY LIVER. 2. FIBROID UTERUS. 3. FAT -CONTAINING VENTRAL HERNIA. 4. 1.4 CM RIGHT OVARIAN CYST. 5. NO ACUTE CT PATHOLOGY OF THE VISUALIZED ABDOMEN OR PELVIS. Re-Evaluation - Re-Evaluation First Eval Change: Improved Comment: feeling better after toradol GIGU Course/Dx - Course Course Of Treatment: 58-year-old female presents with abdominal pain for the past couple months. She states it has not gotten worse. States something is wrong with her intestines. She has a history constipation. She takes linzess daily. She denies any nausea vomiting. No diarrhea. No blood in stool. Hasn' t tried anything else. No fevers. No chest pain or shortness of breath. On exam has tenderness epigastric region. electrolytes normal. crp normal. CT abd no acute findings. discussed will have patient add on colace for constipation. told will add on omeprazole for epigastric pain, gave referral to surgery about ventral hernia to follow up on. told follow up with primary. patient understand and agrees with plan. - Diagnoses Differential Diagnoses - Female: Bowel Obstruction, Constipation, Gastritis Provider Diagnoses: Abdominal pain Discharge - Sign-Out/Discharge Documenting (check all that apply): Patient Departure Patient Received Moderate/Deep Sedation with Procedure: No - Discharge Plan Condition: Good Disposition: HOME Prescriptions: Omeprazole CAP(NF) [PriLOSEC CAP(NF)] 10 mg PO DAILY #14 cap Patient Education Materials: Abdominal Pain (ED) Referrals: Soren Garnett MD [Medical Doctor] - No Primary Care Phys,NOPCP [Primary Care Provider] - Additional Instructions: start colace twice a day take omeprazole once a day for 14 days Follow up with surgery follow up with primary Return to ED if develop any new or worsening symptoms - Billing Disposition and Condition Condition: GOOD Disposition: Home
[2018-10-24 12:28] LABS: ABS Basophils 0.1 10^3/ul (0-0.2); ABS Lymphocytes 2.3 10^3/ul (1.0-4.8); ABS Monocytes 0.5 10^3/ul (0-0.8); ABS Neutrophils 5.9 10^3/ul (1.5-7.7); Eosinophil % 0.3 %; Hematocrit 44 % (35-47); Hemoglobin 14.7 g/dL (12.0-16.0); Lymphocyte % 26.5 %; Mean Corpuscular HGB Conc 33 g/dL (31-36); Mean Corpuscular Hemoglobin 29 pg (27-31); Mean Corpuscular Volume 88 fL (80-97); Mean Platelet Volume 8.3 fL (7.4-10.4); Nucleated Red Blood Cells % 0.1; Platelet Count 305 10^3/uL (150-450); Red Blood Count 5.04 10^6 /uL (3.70-4.87); Red Cell Distribution Width 14 % (10-15); White Blood Count 8.8 10^3/uL (3.5-10.8)
[2018-10-24 12:47] LABS: ALT 18 U/L (7-52); AST 17 U/L (13-39); Albumin 4.4 g/dL (3.2-5.2); Albumin/Globulin Ratio 1.3 (1-3); Alkaline Phosphatase 88 U/L (34-104); Amylase 88 U/L (29-103); Anion Gap 11 mmol/L (2-11); BUN/Creatinine Ratio 14.1 (8-20); Blood Urea Nitrogen 10 mg/dL (6-24); C Reactive Protein 7.34 mg/L (<8.01); CO2 Carbon Dioxide 23 mmol/L (22-32); Chloride 105 mmol/L (101-111); EGFR African American 102.3 (>60); EGFR Non-African American 84.6 (>60); Globulin 3.5 g/dL (2-4); Glucose 111 mg/dL (70-100); Potassium 3.7 mmol/L (3.5-5.0); Sodium 139 mmol/L (135-145); Total Protein 7.9 g/dL (6.4-8.9)
[2018-10-24] MEDS ORDERED: Iohexol 300* (CONTRAST) 10 ML SDV IV ONE (13:53)
[2018-10-24 15:53] VITALS: BP 139/108
== END 2018-10-24 15:33 | disposition home or self-care (01) ==
LOC: ED 11:25
DX: R10.9 Unspecified abdominal pain (principal); K59.00 Constipation, unspecified; K43.9 Ventral hernia without obstruction or gangrene
CPT/HCPCS: 36415; 74177; 80053; 82150; 83605; 83690; 84484; 85025; 86140; 93005; 96361; 96374; 99283; J1885; Q9967